=== PATIENT | female | born 1995 | race Two or more races ===

== ENCOUNTER 2016-07-19 16:21 | Emergency (ER) | payer OTHER ==
[~2016-07-19] VITALS: Ht 160 cm; Wt 54.8 kg
[2016-07-19 16:27] VITALS: BP 95/51; PULSE 90; RESP 16; TEMP 98.9; O2SAT 100
[2016-07-19 17:27] LABS: BLOOD, URINE NEG (NEG); GLUCOSE,URINE NEG (NEG); KETONE, URINE NEG (NEG); NITRITE,URINE NEG (NEG)
[2016-07-19 17:33] LABS: METHOD OF COLLECTION CLEAN CATCH; MUCUS URINE FEW /lpf (OCC); URINE COLOR YELLOW (YELLW/STRAW)
[2016-07-19 17:33] LABS: AUTOMATED NEUTROPHIL # 4.7 TH/MM3 (1.8-7.7); BASOPHIL # 0.2 TH/MM3 (0-0.2); BASOPHIL % 3.1 % (0.0-2.0); EOSINOPHIL # 0.2 TH/MM3 (0-0.4); EOSINOPHIL % 2.7 % (0.0-4.0); HEMATOCRIT 38.3 % (35.0-46.0); HEMO FLAGS DIFF FINAL; LYMPH % 22.8 % (9.0-44.0); LYMPHOCYTE # 1.6 TH/MM3 (1.0-4.8); MEAN CELL VOLUME 83.2 FL (80.0-100.0); MEAN CORPUSCULAR HEMOGLOBIN 28.3 PG (27.0-34.0); MONO % 5.8 % (0.0-8.0); NEUT % 65.6 % (16.0-70.0); PLATELET COUNT 259 TH/MM3 (150-450); RED BLOOD COUNT 4.61 MIL/MM3 (4.00-5.30); RED CELL DISTRIBUTION WIDTH 14.2 % (11.6-17.2); WHITE BLOOD COUNT 7.1 TH/MM3 (4.0-11.0)
[2016-07-19 17:34] LABS: COMMENT (UR) CULT NOT INDICATED; CULTURE IF INDICATED CULT NOT INDICATED; RBC, URINE 0-3 /hpf (0-3)
--- NOTE | 2016-07-19 17:35 | PD ---
HPI Chief Complaint: Abdominal Pain Time Seen by Provider: 17:05 Travel History International Travel<30 days: No Contact w/Intl Traveler<30days: No Traveled to known affect area: No History of Present Illness HPI Patient is a 21-year-old female who presents emergency department for evaluation of abdominal cramping, nausea, burning with urination, sore throat. Symptoms have been ongoing for approximately one week. Patient is 2 months with no OB follow-up. Patient is sexually active and not on any current control. She denies any fevers, chills, vomiting, shortness of breath, headache, chest pain. Patient has not had a menstrual cycle since of her daughter. PFSH Past Medical History Medical History: Denies Significant Hx Influenza Vaccination: No ?: LMP: 2 months post Past Surgical History Surgical History: No Previous Surgery Social History Alcohol Use: No Tobacco Use: No Substance Use: No Allergies-Medications (Allergen,Severity, Reaction): Coded Allergies: No Known Allergies (Unverified , 07/19/16) Reported Meds & Prescriptions Reported Meds & Active Scripts Active No Active Prescriptions or Reported Medications Review of Systems Except as stated in HPI: all other systems reviewed are Neg General / Constitutional: No: Fever, Chills HENT: Positive: Sore Throat, No: Headaches Cardiovascular: No: Chest Pain or Discomfort Respiratory: No: Cough, Shortness of Breath Gastrointestinal: Positive: Nausea, Abdominal Pain, No: Vomiting, Diarrhea Genitourinary: Positive: Dysuria, Pelvic Pain, No: Discharge, Vaginal Bleeding Musculoskeletal: No: Myalgias Neurologic: No: Dizziness Physical Exam Narrative GENERAL: Well-nourished, well-developed patient. SKIN: Warm and dry. HEAD: Normocephalic. EYES: No scleral icterus. No injection or drainage. NECK: Supple, trachea midline. No JVD or lymphadenopathy. CARDIOVASCULAR: Regular rate and rhythm without murmurs, gallops, or rubs. RESPIRATORY: Breath sounds equal bilaterally. No accessory muscle use. GASTROINTESTINAL: Abdomen soft, mildly tender to palpation in suprapubic region. Positive bowel sounds, no rebound, no guarding. MUSCULOSKELETAL: No cyanosis, or edema. BACK: Nontender without obvious deformity. No CVA tenderness. Data Data Last Documented VS Vital Signs Date Time Temp Pulse Resp B/P Pulse Ox O2 Delivery O2 Flow Rate FiO2 07/19/16 19:00 99.1 72 16 107/52 99 Room Air Orders Urinalysis - C+S If Indicated (07/19/16 17:14) Complete Blood Count With Diff (07/19/16 17:17) Beta Hcg (Quant/Titer) (07/19/16 17:17) Basic Metabolic Panel (Bmp) (07/19/16 17:17) Iv Access Insert/Monitor (07/19/16 17:17) Us Pelvis (Ques Pr/Ect)W Trans (07/19/16 ) Labs Laboratory Tests Test 07/19/16 07/19/16 17:15 17:30 Urine Collection Type CLEAN CATCH Urine Color YELLOW Urine Turbidity CLEAR Urine pH 6.0 Urine Specific Dell 1.028 Urine Protein NEG mg/dL Urine Glucose (UA) NEG mg/dL Urine Ketones NEG mg/dL Urine Occult Blood NEG Urine Nitrite NEG Urine Bilirubin NEG Urine Leukocyte Esterase TRACE Urine RBC 0-3 /hpf Urine WBC 6-8 /hpf Urine Squamous Epithelial 6-8 /hpf Cells Urine Mucus FEW /lpf Microscopic Urinalysis Comment CULT NOT INDICATED Urine Collection Time 17:15 White Blood Count 7.1 TH/MM3 Red Blood Count 4.61 MIL/MM3 Hemoglobin 13.0 GM/DL Hematocrit 38.3 % Mean Corpuscular Volume 83.2 FL Mean Corpuscular Hemoglobin 28.3 PG Mean Corpuscular Hemoglobin 34.0 % Concent Red Cell Distribution Width 14.2 % Platelet Count 259 TH/MM3 Mean Platelet Volume 7.8 FL Neutrophils (%) (Auto) 65.6 % Lymphocytes (%) (Auto) 22.8 % Monocytes (%) (Auto) 5.8 % Eosinophils (%) (Auto) 2.7 % Basophils (%) (Auto) 3.1 % Neutrophils # (Auto) 4.7 TH/MM3 Lymphocytes # (Auto) 1.6 TH/MM3 Monocytes # (Auto) 0.4 TH/MM3 Eosinophils # (Auto) 0.2 TH/MM3 Basophils # (Auto) 0.2 TH/MM3 CBC Comment DIFF FINAL Differential Comment Sodium Level 141 MEQ/L Potassium Level 3.8 MEQ/L Chloride Level 109 MEQ/L Carbon Dioxide Level 24.1 MEQ/L Anion Gap 8 MEQ/L Blood Urea Nitrogen 11 MG/DL Creatinine 0.63 MG/DL Estimat Glomerular Filtration 117 ML/MIN Rate Random Glucose 82 MG/DL Calcium Level 8.2 MG/DL Human Chorionic Gonadotropin, 118 MIU/ML Quant MDM Medical Decision Making Medical Screen Exam Complete: Yes Emergency Medical Condition: Yes Interpretation(s) Vital Signs Date Time Temp Pulse Resp B/P Pulse Ox O2 Delivery O2 Flow Rate FiO2 07/19/16 16:27 98.9 90 16 95/51 100 Differential Diagnosis Intrauterine versus ectopic versus threatened versus urine rechecked infection versus other Narrative Course Patient is a 21-year-old female who presents to the emergency department for evaluation of intermittent bilateral lower abdominal cramping, nausea. Patient is 2 months and has not had a menstrual cycle. She is not breast- feeding. Her vital signs are stable, she is afebrile well oxygenated on room air. [id number] urine was positive. CBC, chemistry, unremarkable. HCG level was elevated at 118. Urinalysis shows white blood cells, small with epithelial, trace leukocyte esterase. HCG level can remain elevated up to 2 months however patient has been sexually active and is not on control. It is likely that she has a very early intrauterine or possible ectopic . A pelvic and transvaginal ultrasound was performed, no intrauterine was seen, an ectopic could not be ruled out. There is an oval hypoechoic area seen in the right ovary this is non-specific. Additionally there is mild free fluid. Discussed with my attending physician. Patient was advised on the findings regarding ultrasound and her hCG level. Discussed with patient that she may have a very early intrauterine versus an ectopic versus elevation of her hCG level. Patient was given strict return precautions. She was advised to return to emergency Department regardless of pain in 2-3 days for reevaluation and reassessment of her hCG level. She was advised to return to emergency department immediately for any new or worsening symptoms. Discussed [facility] as an option for [facility] [employer] care. However patient was advised to return to the emergency department if she could not be seen there in the next 2-3 days. Patient verbalized understanding of the importance of close follow-up as well as prompt return for any new or worsening symptoms. Patient is stable for discharge. Diagnosis Primary Impression: Elevated serum human chorionic gonadotropin (hCG) level Additional Impression: Possible , not yet confirmed Referrals: [facility] Patient Instructions: Ectopic (DC), General Instructions Additional Instructions: Return to emergency department immediately for any new or worsening symptoms Return to emergency department for reevaluation in 2-3 days Follow-up with the [facility] or [facility] Med/Other Pt SpecificInfo: No Change to Meds Scripts No Active Prescriptions or Reported Meds Disposition: 01 DISCHARGE HOME Condition: Stable Vane Beaver Jul 19, 2016 17:35
[2016-07-19 17:41] LABS: POTASSIUM 3.8 MEQ/L (3.5-5.1)
[2016-07-19 17:44] LABS: BICARBONATE 24.1 MEQ/L (21.0-32.0)
[2016-07-19 19:00] VITALS: BP 107/52; PULSE 72; RESP 16; TEMP 99.1; O2SAT 99
--- NOTE | 2016-07-19 20:15 | RADHPO ---
EXAM DATE/TIME: 07/20/2016 00:20 [place] COMPARISON: No previous studies available for comparison. INDICATIONS : Pelvic pain. LAB(S): Beta-hC MEDICAL HISTORY : . 2 months . SURGICAL HISTORY : None. ENCOUNTER: Initial ACUITY: 1 day PAIN SCORE: 7/10 LOCATION: Bilateral pelvis MEASUREMENTS: UTERUS: 9.8 x 6.5 x 5.4 cm ENDOMETRIAL STRIPE: 16 mm RIGHT OVARY: 3.3 x 2.2 x 1.6 cm LEFT OVARY: 3.1 x 2.6 x 1.3 cm FINDINGS: UTERUS: The myometrium has homogeneous echotexture without mass. RIGHT OVARY: There is a 1.7 x 1.1 x 1.5 cm oval hypoechoic area seen associated with the right ovary. LEFT OVARY: Ovary contains no mass or significant cystic lesion. MISCELLANEOUS: There is mild free fluid. CONCLUSION: 1. No IUP is seen. An ectopic is not ruled out. 2. Oval hypoechoic area seen in the right ovary area, this is nonspecific. It can be followed. Sd Moreno MD on July 19, 2016 at 20:09 Board Certified Radiologist. This report was verified electronically.
[2016-07-19 20:48] VITALS: BP 97/46
[2016-12-03] MEDS ORDERED: PREN1CHW7 PO (15:10)
[2016-12-08] MEDS ORDERED: METR-1 PO (16:40)
[2016-12-08] MEDS ORDERED: TERC.4%V VAGINAL (16:40)
== END 2016-07-19 21:03 | disposition home or self-care (01) ==
LOC: PHED 16:21
DX: R78.89 Finding of other specified substances, not normally found in blood (principal); R93.8 Abnormal findings on diagnostic imaging of other specified body structures; R10.9 Unspecified abdominal pain; R11.0 Nausea; R30.0 Dysuria; R07.0 Pain in throat
CPT/HCPCS: 76700; 76817; 80048; 81001; 84702; 85025

== ENCOUNTER 2016-08-05 14:22 | Emergency (ER) | payer OTHER ==
[~2016-08-05] VITALS: Ht 160 cm; Wt 54.0 kg
[2016-08-05 14:29] VITALS: BP 98/58; PULSE 83; RESP 16; TEMP 99.4; O2SAT 100
[2016-12-03] MEDS ORDERED: PREN1CHW7 PO (15:10)
[2016-12-08] MEDS ORDERED: METR-1 PO (16:40)
[2016-12-08] MEDS ORDERED: TERC.4%V VAGINAL (16:40)
== END 2016-08-05 15:56 | disposition left against medical advice (07) ==
LOC: PHED 14:22
DX: O26.891 Other specified pregnancy related conditions, first trimester (principal); Z3A.01 Less than 8 weeks gestation of pregnancy
CPT/HCPCS: 99281

== ENCOUNTER 2017-02-19 08:20 | Emergency (ER) | payer MEDICAID, OTHER ==
[~2017-02-19] VITALS: Ht 160 cm; Wt 55.0 kg
[~2017-02-19 08:20] MED LIST: PREN1CHW7 PO
[2017-02-19 08:29] VITALS: BP 99/45; PULSE 101; RESP 16; TEMP 99; O2SAT 98
[2017-02-19] MEDS ORDERED: ZANT150T2 PO (09:08)
[2017-02-19 09:09] VITALS: BP 100/54; PULSE 96; RESP 16; TEMP 98.7; O2SAT 99
--- NOTE | 2017-02-19 09:09 | PD ---
HPI Chief Complaint: cough Time Seen by Provider: 08:54 Travel History International Travel<30 days: No Contact w/Intl Traveler<30days: No History of Present Illness HPI This is a 21-year-old female who presents to the emergency department 21 weeks with a cough that's been going on for 1 week, constant, moderate severity, worse in the evenings, with no associated fevers or chills. She has no rhinorrhea or sore throat. She has been bringing up some yellow sputum. It' s been keeping her up at night so she came to the emergency department. She has no history of asthma. She isn't smoke. She has a baby that 9 months old. FOR[facility]LY [facility] Social History Alcohol Use: No Tobacco Use: No Substance Use: No Allergies-Medications (Allergen,Severity, Reaction): Coded Allergies: No Known Allergies (Unverified , 01/04/17) Reported Meds & Prescriptions Reported Meds & Active Scripts Active Vitafol Gummies 3.33-0.333-34.8 mg ( Vit W/ Ferric Phospha) 1 Chw Chw 3 Tab PO DAILY Review of Systems Except as stated in HPI: all other systems reviewed are Neg Physical Exam Narrative GENERAL:Well appearing, no acute distress SKIN: Focused skin assessment warm and dry. HEAD: Atraumatic. Normocephalic. EYES: Pupils equal and round. No injection or drainage. ENT: Moist mucous membranes NECK: Trachea midline. CARDIOVASCULAR: Regular rate and rhythm. No murmur appreciated. RESPIRATORY: Clear to auscultation. Breath sounds equal bilaterally. GASTROINTESTINAL: Abdomen soft, non-tender, nondistended. Gravid uterus. MUSCULOSKELETAL: No obvious deformities. NEUROLOGICAL: Awake and alert. No obvious cranial nerve deficits. Moving all extremities. PSYCHIATRIC: Appropriate mood and affect; insight and judgment normal. Data Data Last Documented VS Vital Signs Date Time Temp Pulse Resp B/P (MAP) Pulse Ox O2 Delivery O2 Flow Rate FiO2 02/19/17 08:29 99.0 101 16 99/45 (63) 98 Room Air MDM Medical Decision Making Medical Screen Exam Complete: Yes Emergency Medical Condition: Yes Differential Diagnosis Bronchitis, pneumonia, GERD Narrative Course This is a 21-year-old female who is 21 weeks who presents to the emergency department with a productive cough for one week. She is very well- appearing and has a benign exam. I recommended a steamed humidifier. I suspect the patient's symptoms may be related to GERD as she mostly coughs in the evenings and I recommended a one week trial of ranitidine. Diagnosis Primary Impression: Cough Additional Instructions: If you develop severe chest pain, shortness of breath, sweating, lightheadedness , dizziness or difficulty breathing return to the emergency department immediately. Obtain a humidifier and place it in your room. Complete a one-week trial of Zantac and see if your symptoms improved. Med/Other Pt SpecificInfo: Prescription(s) given Scripts Ranitidine (Zantac) 150 Mg Tab 150 MG PO BID for Reduce Stomach Acid, #60 TAB 0 Refills Prov: Soco Du MD 02/19/17 Disposition: 01 DISCHARGE HOME Condition: Stable Soco Du MD Feb 19, 2017 09:09
[2017-03-03] MEDS ORDERED: TERC0.8C VAGINAL (13:29)
== END 2017-02-19 09:32 | disposition home or self-care (01) ==
LOC: PHED 08:20
DX: O26.892 Other specified pregnancy related conditions, second trimester (principal); R05 Cough; Z3A.21 21 weeks gestation of pregnancy
CPT/HCPCS: 99283

== ENCOUNTER 2017-05-09 16:20 | Emergency (ER) | payer MEDICAID ==
[~2017-05-09] VITALS: Ht 160 cm; Wt 59.4 kg
[~2017-05-09 16:20] MED LIST changes: +ZANT150T2 PO
[2017-05-09 16:45] VITALS: RESP 18
--- NOTE | 2017-05-09 17:22 | PD ---
HPI Chief Complaint Possible contractions Date Seen: May 09, 2017 Time Seen: 16:40 Travel History International Travel<30 Days: No Contact w/Intl Traveler<30Days: No Known Affected Area: No History of Present Illness HPI 22-year-old 4 para 2 SAB 1 living children 1 who is at 31-6/7 weeks gestation and comes today for concern about possible contractions. She denies any bleeding, loss of fluid, vaginal discharge. She denies any dysuria hematuria or frequency. Her 1-year-old daughter was born at term that she had a similar episode of early contractions without labor. History Past Medical History Medical History: Denies Significant Hx Obstetric History Obstetric History Her first resulted in a vaginal delivery and secondary to chromosomal abnormality. Her second resulted in term vaginal delivery of a now 1-year-old female. She had a spontaneous loss earlier this year. Past Surgical History Surgical History: No Previous Surgery Family History Family History: Negative Social History Alcohol Use: No Tobacco Use: No Substance Abuse: No Allergies-Medications (Allergen,Severity, Reaction): Coded Allergies: No Known Allergies (Unverified Allergy, Unknown, 04/28/17) Home Meds Active Scripts Vit W/ Ferric Phospha (Vitafol Gummies 3.33-0.333-34.8 mg) 1 Chw Chw, 3 TAB PO DAILY, #90 BOTTLE 11 Refills Prov:Maria R Mccoy 12/03/16 Discontinued Scripts Ranitidine (Zantac) 150 Mg Tab, 150 MG PO BID for Reduce Stomach Acid, #60 TAB 0 Refills Prov:Soco Du MD 02/19/17 Review of Systems Except as stated in HPI: all other systems reviewed are Neg Physical Exam Narrative GENERAL: Well-nourished, well-developed patient. SKIN: Warm and dry. HEAD: Normocephalic and atraumatic. EYES: No scleral icterus. No injection or drainage. ENT: No nasal drainage noted. Mucous membranes pink. Airway patent. NECK: Supple, trachea midline. No JVD. CARDIOVASCULAR: Regular rate and rhythm without murmurs, gallops, or rubs. RESPIRATORY: Breath sounds equal bilaterally. No accessory muscle use. BREASTS: Bilateral exam showed no masses , no retractions, no nipple discharge. ABDOMEN/GI: Abdomen soft, non-tender, bowel sounds present, no rebound, no guarding Gravid to [-] weeks size Fundal Height: [-30] GENITOURINARY: External Genitalia: intact and normal in appearance BUS glands: [-] Cervix: [-] Dilatation: [Closed-] Effacement: [-Long] Station: [High-] Presentation: [-] Membranes: [intact ] Uterine Contractions: [Every 3-5 mild-] FHT's: Category: [-1] Baseline: [-] Reactive: [-] Variability: [-] Decels: [-] EXTREMITIES: No cyanosis or edema. BACK: Nontender without obvious deformity. No CVA tenderness. NEUROLOGICAL: Awake and alert. Motor and sensory grossly within normal limits. Five out of 5 muscle strength in all muscle groups. Normal speech. MDM Medical Record Reviewed: Yes Narrative Course / MDM Assessment: 31 6/7 week intrauterine with contractions and a nonthreatening cervical examination Plan: fibronectin IV hydration Addendum: Following 1 L of IV hydration the contractions diminished. Cervix remained unchanged. fibronectin was negative. The patient was discharged home in stable condition. Aber precautions were reviewed with her. She will follow up in the clinic on Wednesday. Disposition: DISCHARGE HOME Condition: Good Pérez Rivera MD May 09, 2017 17:22
[2017-05-09 17:36] LABS: BLOOD, URINE NEG (NEG); GLUCOSE,URINE NEG (NEG); KETONE, URINE NEG (NEG); MUCUS URINE FEW /lpf (OCC); NITRITE,URINE NEG (NEG); PH, URINE 7.5 (5.0-8.5); URINE COLOR YELLOW (YELLW/STRAW)
[2017-05-09 17:37] LABS: COMMENT (UR) CULT NOT INDICATED; CULTURE IF INDICATED CULT NOT INDICATED
[2017-05-09] MEDS ORDERED: SODIUM CHLOR 0.9% 1000 ML INJ 1,000 ML IV SCH (18:00)
== END 2017-05-09 18:24 | disposition home or self-care (01) ==
LOC: HOBED 16:20
DX: O26.93 Pregnancy related conditions, unspecified, third trimester (principal); Z3A.31 31 weeks gestation of pregnancy
CPT/HCPCS: 59025; 81001; 82731

== ENCOUNTER 2017-06-16 21:37 | Emergency (ER) | payer MEDICAID ==
[~2017-06-16] VITALS: Ht 160 cm; Wt 60.3 kg
[~2017-06-16 21:37] MED LIST changes: -ZANT150T2 PO
--- NOTE | 2017-06-16 22:20 | PD ---
HPI Chief Complaint Contractions Date Seen: Jun 16, 2017 Time Seen: 22:17 Travel History International Travel<30 Days: No Contact w/Intl Traveler<30Days: No Known Affected Area: No History of Present Illness HPI 22-year-old G for P2 who is at 37 weeks and 4 days comes in complaining of contractions for the past several hours. Patient's had contractions in the past was treated with hydration here on the unit. Patient is been 3 cm for several weeks the last exam being 4 days ago in the office. She is group B strep negative and denies any antepartum complications with this . She has no medical issues. Weeks Gestation: 37 (37.4) Para: 2 : 4 History Past Medical History Medical History: Denies Significant Hx Obstetric History Obstetric History Vaginal delivery of a trisomy 9 with Spontaneous vaginal delivery 1 year ago, 6 lbs. 10 oz., induced at 38 weeks due to polyhydramnios per patient history Past Surgical History Surgical History: No Previous Surgery Family History Family History: Negative Social History Alcohol Use: No Tobacco Use: No Substance Abuse: No Allergies-Medications (Allergen,Severity, Reaction): Coded Allergies: No Known Allergies (Unverified Allergy, Unknown, 06/16/17) Home Meds Discontinued Scripts Vit W/ Ferric Phospha (Vitafol Gummies 3.33-0.333-34.8 mg) 1 Chw Chw, 3 TAB PO DAILY, #90 BOTTLE 11 Refills Prov:Maria R Mccoy 12/03/16 Review of Systems Except as stated in HPI: all other systems reviewed are Neg Physical Exam Narrative GENERAL: Well-nourished, well-developed patient. SKIN: Warm and dry. HEAD: Normocephalic and atraumatic. EYES: No scleral icterus. No injection or drainage. ENT: No nasal drainage noted. Mucous membranes pink. Airway patent. NECK: Supple, trachea midline. No JVD. CARDIOVASCULAR: Regular rate and rhythm without murmurs, gallops, or rubs. RESPIRATORY: Breath sounds equal bilaterally. No accessory muscle use. ABDOMEN/GI: Abdomen soft, non-tender, bowel sounds present, no rebound, no guarding Gravid to [36-] weeks size Fundal Height: [-] GENITOURINARY: External Genitalia: intact and normal in appearance BUS glands: [Normal-] Cervix: [Posterior-] Dilatation: [3-] Effacement: [Thick-] Station: [--3] Presentation: [-Vertex] Membranes: [intact] Uterine Contractions: [-Irritability] FHT's: Category: [-1] Baseline: [-140] Reactive: [Moderate-] Variability: [Moderate-] Decels: [-Absent] EXTREMITIES: No cyanosis or edema. BACK: Nontender without obvious deformity. No CVA tenderness. NEUROLOGICAL: Awake and alert. Motor and sensory grossly within normal limits. Five out of 5 muscle strength in all muscle groups. Normal speech. Data Data Vital Signs Reviewed: Yes MDM Medical Record Reviewed: Yes Plan 22 yo at 37-38 weeks gestation with no cervical change. Contractions has decreased considerably with hydration and rest. Discharge home with follow up as scheduled Diagnosis Diagnosis: Primary Impression: 37 weeks gestation of Additional Impression: False labor at or after 37 completed weeks of gestation Disposition: 01 DISCHARGE HOME Wilma Jj MD Jun 16, 2017 22:20
== END 2017-06-16 23:41 | disposition home or self-care (01) ==
LOC: HOBED 21:37
DX: O47.1 False labor at or after 37 completed weeks of gestation (principal); Z3A.37 37 weeks gestation of pregnancy
CPT/HCPCS: 59025

== ENCOUNTER 2017-06-24 14:54 | Emergency (ER) | payer MEDICAID ==
--- NOTE | 2017-06-24 15:40 | PD ---
HPI Chief Complaint Painful contractions Date Seen: Jun 24, 2017 Time Seen: 15:35 Travel History International Travel<30 Days: No Contact w/Intl Traveler<30Days: No History of Present Illness HPI Patient is a 22-year-old at 38/3 weeks who presents with painful contractions. Is a [facility]. Estimated due date 07/03/2017. States that she noticed that contractions occurring yesterday, and today they were feeling 5-7 minutes apart and very painful. States that she can walk. Denies vaginal bleeding, gush of fluid, endorses movement. Patient states that she has been hydrating well today. Was found to be 4 cm dilated on Wednesday, has been regularly following up for her appointments. Is GBS negative. Patient states that she has had no abnormalities this course. Weeks Gestation: 38 Para: 2 : 4 Miscarriage: 1 History Past Medical History Medical History: Denies Significant Hx Obstetric History Obstetric History Vaginal delivery of a trisomy 9 infant with Spontaneous vaginal delivery 1 year ago, 6 lbs. 10 oz., induced at 38 weeks due to polyhydramnios per patient history Miscarriage at 9 weeks - 07/2016 Past Surgical History Surgical History: No Previous Surgery Family History Family History: Negative Social History Alcohol Use: No Tobacco Use: No Substance Abuse: No Allergies-Medications (Allergen,Severity, Reaction): Coded Allergies: No Known Allergies (Unverified Allergy, Unknown, 06/16/17) Home Meds No Active Prescriptions or Reported Meds Review of Systems Except as stated in HPI: all other systems reviewed are Neg Physical Exam Narrative GENERAL: Well-nourished, well-developed patient. SKIN: Warm and dry. HEAD: Normocephalic and atraumatic. EYES: No scleral icterus. No injection or drainage. NECK: Supple, trachea midline. No JVD. CARDIOVASCULAR: Regular rate and rhythm without murmurs, gallops, or rubs. RESPIRATORY: Breath sounds equal bilaterally. No accessory muscle use. ABDOMEN/GI: Abdomen soft, non-tender, bowel sounds present, no rebound, no guarding GENITOURINARY: Cervix: Posterior Dilatation:4 Effacement: 50 Station: -2 Presentation: vertex Membranes: intact Uterine Contractions: irregular FHT's: Category: 1 Baseline: 130 Reactive: yes Variability: mod Decels: none EXTREMITIES: No cyanosis or edema. NEUROLOGICAL: Awake and alert. Motor and sensory grossly within normal limits. Normal speech. Data Data Vital Signs Reviewed: Yes Group B Strep: Negative MDM Medical Record Reviewed: Yes Plan Patient is a 22-year-old at 38/3 weeks presenting with painful contractions. Category 1 tracing, reassuring /-2, does not appear to be jamila; rather uterine irritability Ruled out active labor Contractions likely secondary to Kameron Maravilla Educated patient to return if gush of fluid noted, vaginal bleeding, frequent/ painful contractions. RELL Damian Diagnosis Diagnosis: Primary Impression: Valencia Maravilla' contraction Additional Impression: 38 weeks gestation of Disposition: DISCHARGE HOME Condition: Stable Scripts No Active Prescriptions or Reported Meds Shelby Heredia MD R1 Jun 24, 2017 15:40
== END 2017-06-24 16:27 | disposition home or self-care (01) ==
LOC: HOBED 14:54
DX: O47.1 False labor at or after 37 completed weeks of gestation (principal); Z3A.38 38 weeks gestation of pregnancy
CPT/HCPCS: 59025

== ENCOUNTER 2017-06-26 16:25 | Inpatient (IN) | payer MEDICAID ==
[~2017-06-26] VITALS: Ht 160 cm; Wt 64.0 kg
[2017-06-26] VITALS (55 sets, daily range): BP systolic 96–132; BP diastolic 42–93; PULSE 85–143; RESP 18–20; TEMP 98–98.4
[~2017-06-26 16:25] MED LIST changes: +DIPHTH/TETANUS/ACEL PERTUSSIS (BOOSTER) 0.5 ML VIAL/PFS IM ONE; +MEASLES, MUMPS, RUBELLA VACCINE 0.5 ML VIAL SQ ONE; -PREN1CHW7 PO
--- NOTE | 2017-06-26 17:16 | PD ---
HPI Chief Complaint 39 weeks uterine contractions 3 hours mucoid red vaginal discharge Date Seen: Jun 26, 2017 Time Seen: 17:15 Travel History International Travel<30 Days: No Contact w/Intl Traveler<30Days: No Known Affected Area: No History of Present Illness HPI Pt is a 22 yo at 39 weeks. EDC 07-03-2017 care with [facility] GBS negative. Pt states she has had strong contractions starting about 3 hours prior to presentation. She reports red mucoid discharge. She notes reduced movement No vaginal bleeding. No vaginal leaking. First immediately , diagnosed with Trisomy 9. Second went to term. Pt states she was checked in the office 3 days ago and was 4cm dilated. Weeks Gestation: 39 Para: 1 : 4 History Past Medical History Medical History: Denies Significant Hx Obstetric History Obstetric History First ended in , diagnosed with Trisomy 9. Second went to term, Pt had 1st trimester miscarriage in 07/2016 Past Surgical History Surgical History: No Previous Surgery Family History Family History: Negative Social History Alcohol Use: No Tobacco Use: No Substance Abuse: No Allergies-Medications (Allergen,Severity, Reaction): Coded Allergies: No Known Allergies (Unverified Allergy, Unknown, 06/16/17) Home Meds No Active Prescriptions or Reported Meds Review of Systems Except as stated in HPI: all other systems reviewed are Neg Physical Exam Narrative GENERAL: Well-nourished, well-developed patient. SKIN: Warm and dry. HEAD: Normocephalic and atraumatic. EYES: No scleral icterus. No injection or drainage. ENT: No nasal drainage noted. Mucous membranes pink. Airway patent. NECK: Supple, trachea midline. No JVD. CARDIOVASCULAR: Regular rate and rhythm without murmurs, gallops, or rubs. RESPIRATORY: Breath sounds equal bilaterally. No accessory muscle use. BREASTS: Bilateral exam showed no masses , no retractions, no nipple discharge. ABDOMEN/GI: Abdomen soft, non-tender, bowel sounds present, no rebound, no guarding Gravid to [39] weeks size Fundal Height: [39] GENITOURINARY: External Genitalia: intact and normal in appearance BUS glands: [wnl] Cervix: [soft] Dilatation: [4cm] Effacement: [70%] Station: [-1] Presentation: [vertex] Membranes: [intact] Uterine Contractions: [2 minutes] FHT's: Category: [-] Baseline: [140s] Reactive: [-] Variability: [moderate] Decels: [some variable decells] EXTREMITIES: No cyanosis or edema. BACK: Nontender without obvious deformity. No CVA tenderness. NEUROLOGICAL: Awake and alert. Motor and sensory grossly within normal limits. Five out of 5 muscle strength in all muscle groups. Normal speech. Data Data Vital Signs Reviewed: Yes Group B Strep: Negative MDM Medical Record Reviewed: Yes Interpretation(s) 22 yo at 39 weeks. Presents with regular contractions past 3 hours. status initially non reassuring with minimal variability as well as variable decells. We will admit to L&D. Scripts No Active Prescriptions or Reported Meds Pablo Medina MD Jun 26, 2017 17:16
[2017-06-26] MEDS ORDERED: LACTATED RINGER'S 1000 ML INJ 1,000 ML IV PRN (17:28)
[2017-06-26] MEDS ORDERED: SODIUM CHLORID 0.9% 500 ML INJ 500 ML IV PRN (17:30)
[2017-06-26] MEDS ORDERED: LIDOCAINE HCL 1% 50 ML VIAL I-DERMAL PRN (17:30)
[2017-06-26] MEDS ORDERED: MINERAL OIL 10 ML VIAL TOPICAL PRN (17:30)
[2017-06-26] MEDS ORDERED: OXYTOCIN 30 UNITS-500ML PREMIX 500 ML IV ONE (17:30)
[2017-06-26] MEDS ORDERED: CITRIC ACID-SODIUM CITRATE LIQ 30 ML UDC PO SCH (17:30)
[2017-06-26] MEDS ORDERED: OXYTOCIN 30 UNITS-500ML PREMIX 500 ML IV SCH ×2 (17:30→22:45)
[2017-06-26] MEDS ORDERED: LIDOCAINE HCL 1% 50 ML VIAL INFIL PRN (17:30)
--- NOTE | 2017-06-26 17:38 | HHI.HP ---
HPI Chief Complaint uterine contractions 39 weeks Date Seen: Jun 26, 2017 Time Seen: 17:25 Travel History International Travel<30 Days: No Contact w/Intl Traveler<30Days: No Known Affected Area: No History of Present Illness HPI Pt is a 22 yo at 39 weeks. EDC 07-03-2017 care with [facility] GBS negative. Pt states she has had strong contractions starting about 3 hours prior to presentation. She reports red mucoid discharge. She notes reduced movement No vaginal bleeding. No vaginal leaking. First immediately , diagnosed with Trisomy 9. Second went to term. Pt states she was checked in the office 3 days ago and was 4cm dilated. She remains at 4cm/705/-2 station on exam today by RN. However FHR initially showed minimal variability with variable decells and we will admit. Weeks Gestation: 39 Para: 1 : 4 History Past Medical History Medical History: Denies Significant Hx Obstetric History Obstetric History First neonatally after . trisomy 9 2nd term , complicated by Polyhydramnios, IOL Pt had first trimester miscarriage . Past Surgical History Surgical History: No Previous Surgery Family History Family History: Negative Social History Alcohol Use: No Tobacco Use: No Substance Abuse: No Allergies-Medications (Allergen,Severity, Reaction): Coded Allergies: No Known Allergies (Unverified Allergy, Unknown, 06/16/17) Home Meds No Active Prescriptions or Reported Meds Review of Systems Except as stated in HPI: all other systems reviewed are Neg Physical Exam Narrative GENERAL: Well-nourished, well-developed patient. SKIN: Warm and dry. HEAD: Normocephalic and atraumatic. EYES: No scleral icterus. No injection or drainage. ENT: No nasal drainage noted. Mucous membranes pink. Airway patent. NECK: Supple, trachea midline. No JVD. CARDIOVASCULAR: Regular rate and rhythm without murmurs, gallops, or rubs. RESPIRATORY: Breath sounds equal bilaterally. No accessory muscle use. BREASTS: Bilateral exam showed no masses , no retractions, no nipple discharge. ABDOMEN/GI: Abdomen soft, non-tender, bowel sounds present, no rebound, no guarding Gravid to [39] weeks size Fundal Height: [39] GENITOURINARY: External Genitalia: intact and normal in appearance BUS glands: [wnl] Cervix: [soft] Dilatation: [4cm] Effacement: [70%] Station: [-2] Presentation: [vertex] Membranes: [intact] Uterine Contractions: [every 2 minutes] FHT's: Category: [1 now] Baseline: [140s] Reactive: [-] Variability: [-] Decels: [-] EXTREMITIES: No cyanosis or edema. BACK: Nontender without obvious deformity. No CVA tenderness. NEUROLOGICAL: Awake and alert. Motor and sensory grossly within normal limits. Five out of 5 muscle strength in all muscle groups. Normal speech. Caprini VTE Risk Assessment Caprini VTE Risk Assessment: No/Low Risk (score <= 1) Caprini Risk Assessment Model Point Value = 1 Point Value = 2 Point Value = 3 Point Value = 5 Age 41-60 Minor surgery BMI > 25 kg/m2 Swollen legs Varicose veins or History of unexplained or recurrent spontaneous Oral contraceptives or hormone replacement Sepsis (< 1 month) Serious lung disease, including pneumonia (< 1 month) Abnormal pulmonary function Acute myocardial infarction Congestive heart failure (< 1 month) History of inflammatory bowel disease Medical patient at bed rest Age 61-74 Arthroscopic surgery Major open surgery (> 45 min) Laparoscopic surgery (> 45 min) Malignancy Confined to bed (> 72 hours) Immobilizing plaster cast Central venous access Age >= 75 History of VTE Family history of VTE Factor V Leiden Prothrombin [id number] Lupus anticoagulant Anticardiolipin antibodies Elevated serum homocysteine Heparin-induced thrombocytopenia Other congenital or acquired thrombophilia Stroke (< 1 month) Elective arthroplasty Hip, pelvis, or leg fracture Acute spinal cord injury (< 1 month) Prophylaxis Regimen Total Risk Factor Score Risk Level Prophylaxis Regimen 0-1 Low Early ambulation 2 Moderate Order ONE of the following: *Sequential Compression Device (SCD) *Heparin 5000 units SQ BID 3-4 Higher Order ONE of the following medications: *Heparin 5000 units SQ TID *Enoxaparin/Lovenox 40 mg SQ daily (WT < 150 kg, CrCl > 30 mL/min) *Enoxaparin/Lovenox 30 mg SQ daily (WT < 150 kg, CrCl > 10-29 mL/min) *Enoxaparin/Lovenox 30 mg SQ BID (WT < 150 kg, CrCl > 30 mL/min) AND/OR *Sequential Compression Device (SCD) 5 or more Highest Order ONE of the following medications: *Heparin 5000 units SQ TID (Preferred with Epidurals) *Enoxaparin/Lovenox 40 mg SQ daily (WT < 150 kg, CrCl > 30 mL/min) *Enoxaparin/Lovenox 30 mg SQ daily (WT < 150 kg, CrCl > 10-29 mL/min) *Enoxaparin/Lovenox 30 mg SQ BID (WT < 150 kg, CrCl > 30 mL/min) AND *Sequential Compression Device (SCD) Data Data Vital Signs Reviewed: Yes Orders Orders Ob (2e) Additional Admit Info (06/26/17 17:13) Admit To Inpatient (06/26/17 ) Code Status (06/26/17 17:28) Vital Signs (Adult) .Per protocol (06/26/17 17:28) Activity Oob Ad Shanice (06/26/17 17:28) Heart (06/26/17 17:28) Amnioinfusion (06/26/17 17:28) Urinary Catheter Management .ONCE (06/26/17 17:28) Diet Liquid (06/26/17 Dinner) Lactated Ringer's 1000 Ml Inj (Lr 1000 M (06/26/17 17:28) Lactated Ringer's 1000 Ml Inj (Lr 1000 M (06/26/17 17:28) Sodium Chlorid 0.9% 500 Ml Inj (Ns 500 M (06/26/17 17:30) Sodium Chlor 0.9% 1000 Ml Inj (Ns 1000 M (06/26/17 17:48) Lidocaine 1% Inj (50 Ml) (Xylocaine 1% I (06/26/17 17:30) Citric Acid-Sodium Citrate Liq (Bicitra (06/26/17 17:30) Fentanyl Inj (Fentanyl Inj) (06/26/17 17:30) Fentanyl Inj (Fentanyl Inj) (06/26/17 17:30) Complete Blood Count With Diff (06/26/17 17:28) Hold Clot (06/26/17 17:28) Abo/Rh Blood Type (06/26/17 17:28) Urinalysis - C+S If Indicated (06/26/17 17:28) Drug Screen, Random Urine (06/26/17 17:28) Resp Oxygen Non Rebreathe Mask (06/26/17 ) ^ Epidural / Intrathecal Infus (06/26/17 17:28) Oxytocin 30 Units-500ml Premix (Pitocin (06/26/17 17:30) Lidocaine 1% Inj (50 Ml) (Xylocaine 1% I (06/26/17 17:30) Light Mineral Oil (Muri-Lube Oil) (06/26/17 17:30) Inpatient Certification (06/26/17 ) Specimen To Be Collected PRN (06/26/17 17:28) Specimen To Be Collected PRN (06/26/17 17:28) ^ Non Stress Test (06/26/17 17:29) Response To Medication .Post New Med Administration, Reaction (06/26/17 17:29) ^ Discontinue Medication (06/26/17 17:29) Oxytocin 30 Units-500ml Premix (Pitocin (06/26/17 17:30) Group B Strep: Negative Assessment/Plan Assessment and Plan 22 yo at 39 weeks. Presents with regular contractions and cervical dilatation. Initial FHR non-reassuring, but improved with IVF Plan for L&D admission GBS negative. Pitocin per protocol, AROM when feasible. Pablo Medina MD Jun 26, 2017 17:38
[2017-06-26] MEDS ORDERED: SODIUM CHLOR 0.9% 1000 ML INJ 1,000 ML IV PRN (17:48)
[2017-06-26] MEDS: LACTATED RINGER'S 1000 ML INJ 1,000 ML IV SCH ×2 (18:11→20:40)
[2017-06-26 18:30] LABS: AUTOMATED NEUTROPHIL # 8.9 TH/MM3 (1.8-7.7); BASOPHIL % 0.1 % (0.0-2.0); EOSINOPHIL # 0.1 TH/MM3 (0-0.4); EOSINOPHIL % 0.7 % (0.0-4.0); HEMATOCRIT 30.3 % (35.0-46.0); LYMPH % 14.5 % (9.0-44.0); LYMPHOCYTE # 1.6 TH/MM3 (1.0-4.8); MEAN CELL VOLUME 75.7 FL (80.0-100.0); MEAN CORPUSCULAR HEMOGLOBIN 24.9 PG (27.0-34.0); MEAN CORPUSCULAR HGB CONC 32.9 % (32.0-36.0); MEAN PLATELET VOLUME 7.4 FL (7.0-11.0); MONO % 5.9 % (0.0-8.0); MONOCYTE # 0.7 TH/MM3 (0-0.9); NEUT % 78.8 % (16.0-70.0); PLATELET COUNT 289 TH/MM3 (150-450); RED CELL DISTRIBUTION WIDTH 15.6 % (11.6-17.2); WHITE BLOOD COUNT 11.3 TH/MM3 (4.0-11.0)
[2017-06-26 18:39] LABS: BACTERIA, URINE RARE /hpf; BILIRUBIN, URINE NEG (NEG); BLOOD, URINE NEG (NEG); GLUCOSE,URINE NEG (NEG); KETONE, URINE 10 mg/dL (NEG); MUCUS URINE MOD /lpf (OCC); NITRITE,URINE NEG (NEG); SQUAMOUS EPITHELIAL CELL URINE 4 /hpf (0-5); URINE COLOR YELLOW (YELLW/STRAW); URINE LEUKOCYTE ESTERASE LARGE (NEG)
[2017-06-26] MEDS ORDERED: fentaNYL 2MCG-BUPIV 0.125% INJ 100 ML ONE (19:21)
[2017-06-26] MEDS ORDERED: ePHEDrine/NS 25 MG/5 ML SYRINGE ONE (20:20)
[2017-06-26] MEDS ORDERED: DO NOT ADMINISTER ANTICOAGULANTS PRN (21:15)
[2017-06-26] MEDS ORDERED: ePHEDrine/NS 25 MG/5 ML SYRINGE IV PUSH PRN (21:15)
[2017-06-26] MEDS ORDERED: fentaNYL 2MCG-BUPIV 0.125% 100 ML EPIDURAL SCH (21:15)
[2017-06-26] MEDS ORDERED: NO SYSTEM NARCOTICS PRN (21:15)
[2017-06-26] MEDS ORDERED: ACETAMINOPHEN 325 MG TAB PO PRN (22:45)
[2017-06-26] MEDS ORDERED: ZOLPIDEM TARTRATE 5 MG TAB PO PRN (22:45)
[2017-06-26] MEDS ORDERED: BENZOCAINE 20% TOPICAL SPRAY 60 ML CAN TOPICAL PRN (22:45)
[2017-06-26] MEDS ORDERED: DOCUSATE SODIUM 50 MG/SENNA 8.6 MG TAB PO PRN (22:45)
[2017-06-26] MEDS ORDERED: ALUMINUM/MAGNESIUM/SIMETH 30 ML CUP PO PRN (22:45)
[2017-06-26] MEDS ORDERED: IBUPROFEN 800 MG TAB PO PRN (22:45)
[2017-06-26] MEDS ORDERED: SODIUM CHLORIDE 0.9% FLUSH 10 ML FLUSH IV FLUSH PRN (22:45)
[2017-06-26] MEDS ORDERED: ONDANSETRON ODT 4 MG TAB PO PRN (22:45)
--- NOTE | 2017-06-26 22:45 | PD.OB.DELI ---
Weeks gestation: 39 Gest age assessed date: Jun 26, 2017 Gest age assessed time: 15:00 Pt started active labor?: Yes Active labor start date: Jun 26, 2017 Artificial rupture of membrane: No Anesthesia: Epidural Episiotomy: None Vaginal Delivery: Normal, Spontaneous Presentation: Occiput anterior Nuchal Cord: None Delayed cord clamping (45 sec): No : Female Delivery date: Jun 26, 2017 Delivery time: 21:32 One Minute : 6 Five Minute : 9 Weight: 2725 Placenta: Spontaneous delivery Laceration: No lacerations Estimated blood loss: 150cc Pablo Medina MD Jun 26, 2017 22:45
[2017-06-27] MEDS: WITCH HAZEL 50%/GLYCERIN 12.5% 40 PAD JAR TOPICAL PRN ×2 (03:24→20:12)
[2017-06-27 07:40] VITALS: BP 102/61; PULSE 77; RESP 18; TEMP 98.9
--- NOTE | 2017-06-27 08:26 | HHI.OB ---
Subjective Post Day: 1 Remarks Patient seen and examined this morning. AFVSS overnight. day #1. Patient states she has been having centrally-located abdominal pain that was not relieved by motrin, no radiation of pain. She states she was not able to get much sleep due to the pain. Denies fevers or chills. Decreased lochia. Denies dysuria. No breast tenderness. She is feeding the baby via breast and formula. Appetite good. No nausea or vomiting. Ambulating well. Denies calf pain , shortness of breath, or cough. Objective Vitals/I&O Vital Signs Date Time Temp Pulse Resp B/P (MAP) Pulse Ox O2 Delivery O2 Flow Rate FiO2 06/27/17 07:40 98.9 77 18 102/61 (75) 06/26/17 23:45 98.4 104 18 114/57 (76) 06/26/17 22:51 18 06/26/17 22:45 93 100/55 (70) 06/26/17 22:45 18 06/26/17 22:33 98.4 06/26/17 22:30 18 06/26/17 22:30 89 115/61 (79) 06/26/17 22:15 102 06/26/17 22:15 100 110/60 (77) 06/26/17 22:14 18 06/26/17 22:00 98/60 (73) 06/26/17 21:50 98.1 06/26/17 21:50 18 06/26/17 21:45 103 97/54 (68) 06/26/17 21:31 143 06/26/17 21:31 106/69 (81) 06/26/17 21:25 109 06/26/17 21:15 96/78 (84) 06/26/17 21:10 113 06/26/17 21:05 123 06/26/17 21:00 94 18 103/71 (82) 06/26/17 20:55 113 06/26/17 20:45 109 06/26/17 20:45 103/60 (74) 06/26/17 20:40 112 06/26/17 20:35 111 06/26/17 20:30 115/63 (80) 06/26/17 20:25 109 06/26/17 20:20 100 06/26/17 20:15 105/48 (67) 06/26/17 20:10 104 06/26/17 20:00 110/42 (64) 06/26/17 20:00 98.0 06/26/17 20:00 20 06/26/17 19:55 93 06/26/17 19:55 93 06/26/17 19:54 94 103/55 (71) 06/26/17 19:51 92 109/49 (69) 06/26/17 19:50 94 06/26/17 19:48 87 06/26/17 19:48 110/45 (66) 06/26/17 19:45 97 06/26/17 19:45 99 122/58 (79) 06/26/17 19:42 98 125/48 (73) 06/26/17 19:40 104 06/26/17 19:40 99 06/26/17 19:39 100 125/74 (91) 06/26/17 19:37 98 101/77 (85) 06/26/17 19:35 109 06/26/17 19:34 101/68 (79) 06/26/17 19:34 99 06/26/17 19:30 114 116/65 (82) 06/26/17 19:30 87 06/26/17 19:27 119/93 (102) 06/26/17 19:27 85 06/26/17 19:25 104/71 (82) 06/26/17 19:25 115 06/26/17 19:25 93 06/26/17 19:21 103 06/26/17 19:21 18 06/26/17 19:21 132/75 (94) 06/26/17 19:20 93 06/26/17 19:20 94 06/26/17 19:19 117/65 (82) 06/26/17 19:19 98 06/26/17 19:00 98.0 06/26/17 19:00 114/56 (75) 06/26/17 19:00 20 06/26/17 18:55 98 06/26/17 18:30 20 06/26/17 18:25 115 06/26/17 18:20 115 06/26/17 18:15 112 114/69 (84) 06/26/17 18:15 109 06/26/17 18:00 20 06/26/17 17:57 108 110/68 (82) 06/26/17 17:55 114 06/26/17 17:50 115 06/26/17 17:45 125 Objective Remarks GENERAL: Well-nourished, well-developed patient. CARDIOVASCULAR: Regular rate and rhythm without murmurs, gallops, or rubs. RESPIRATORY: Breath sounds equal bilaterally. No accessory muscle use. ABDOMEN/GI: Abdomen soft, moderate tenderness to palpation of abdomen just inferior to umbilicus, no distension. No guarding. No rebound tenderness. Fundus: Firm, non-tender at umbilicus. GENITOURINARY: Light to moderate bleeding. EXTREMITIES: No cyanosis or edema, non-tender, without signs of DVT. Medications and IVs Current Medications Medications (Trade) Dose Ordered Sig/Nell Route Start Time Stop Time Status Last Admin Miscellaneous Information No systemic narcotics to be given except... UNSCH PRN .XX 06/26/17 21:15 06/27/17 21:14 Miscellaneous Information DO NOT ADMINISTER ANY ANTICOAGUL... UNSCH PRN .XX 06/26/17 21:15 06/27/17 21:14 (NS Flush) 2 ml BID IV FLUSH 06/27/17 09:00 (NS Flush) 2 ml UNSCH PRN IV FLUSH 06/26/17 22:45 (Tylenol) 650 mg Q4H PRN PO 06/26/17 22:45 (Motrin) 800 mg Q8H PRN PO 06/26/17 22:45 06/27/17 04:18 (Americaine 20% Top Spr) 1 spray Q4H PRN TOPICAL 06/26/17 22:45 06/27/17 03:24 (Tucks Pads) 1 applic QID PRN TOPICAL 06/26/17 22:45 06/27/17 03:24 (Yaona-Colace) 2 tab Q12H PRN PO 06/26/17 22:45 (Ambien) 5 mg HS PRN PO 06/26/17 22:45 (Mag-Al Plus Susp Liq) 15 ml Q8H PRN PO 06/26/17 22:45 (Zofran Odt) 4 mg Q6H PRN PO 12/30/17 22:45 (Percocet 5-325 Mg) 1 tab ONCE ONCE PO 06/27/17 08:15 06/27/17 08:16 UNV Assessment/Plan Assessment and Plan 22 year old PPD#1. 1. Care - AFVSS - Encouraged OOB, as tolerated - Motrin prn pain - Will give percocet 5/325 1 tab x1 for pain - Continue to monitor with abdominal exam - Uterine fundus firm - Advised pelvic rest x 6 weeks - Breast and formula feeding - Contraception: discussed with patient this AM. Patient is still considering her options - Will f/u with OB provider in 6 weeks [facility] hospitalist Jalil Beltran MD R2 Jun 27, 2017 08:25
[2017-06-27] MEDS ORDERED: oxyCODONE/ACETAMINOPHEN 5 MG/325 MG TAB PO ONE (08:30)
[2017-06-27] MEDS ORDERED: SODIUM CHLORIDE 0.9% FLUSH 10 ML FLUSH IV FLUSH SCH (09:00)
[2017-06-27 20:00] VITALS: BP 99/59; PULSE 76; RESP 18; TEMP 98.2
[2017-06-28] MEDS ORDERED: medroxyPROGESTERone ACETATE SUSP 150 MG/ML SYRINGE IM ONE ×2 (07:30→08:00)
--- NOTE | 2017-06-28 07:49 | HHI.OB ---
Subjective Remarks 22 year old female s/p at 39wks gestation, PPD2. AFVSS. Patient reports she is feeling well. Bleeding is decreasing and pain is well- controlled. She is breast feeding and bonding well with baby. Ambulating without difficulties. She is tolerating a diet without nausea or vomiting. She has not had a bowel movement. She has passed gas. Denies chest pain, dysuria, shortness of breath, or calf pain. Objective Vitals/I&O Vital Signs Date Time Temp Pulse Resp B/P (MAP) Pulse Ox O2 Delivery O2 Flow Rate FiO2 06/27/17 20:00 98.2 18 06/27/17 20:00 76 99/59 (72) Objective Remarks GENERAL: Well-nourished, well-developed patient. CARDIOVASCULAR: Regular rate and rhythm without murmurs, gallops, or rubs. RESPIRATORY: Breath sounds equal bilaterally. No accessory muscle use. ABDOMEN/GI: Abdomen soft, moderate tenderness to palpation of abdomen just inferior to umbilicus, no distension. No guarding. No rebound tenderness. Fundus: Firm, non-tender at umbilicus. GENITOURINARY: Light to moderate bleeding. EXTREMITIES: No cyanosis or edema, non-tender, without signs of DVT. Medications and IVs Current Medications Medications (Trade) Dose Ordered Sig/Nell Route Start Time Stop Time Status Last Admin (NS Flush) 2 ml BID IV FLUSH 06/27/17 09:00 (NS Flush) 2 ml UNSCH PRN IV FLUSH 06/26/17 22:45 (Tylenol) 650 mg Q4H PRN PO 06/26/17 22:45 06/28/17 04:33 (Motrin) 800 mg Q8H PRN PO 06/26/17 22:45 06/27/17 04:18 (Americaine 20% Top Spr) 1 spray Q4H PRN TOPICAL 06/26/17 22:45 06/27/17 03:24 (Tucks Pads) 1 applic QID PRN TOPICAL 06/26/17 22:45 06/27/17 20:12 (Yoana-Colace) 2 tab Q12H PRN PO 06/26/17 22:45 (Ambien) 5 mg HS PRN PO 06/26/17 22:45 (Mag-Al Plus Susp Liq) 15 ml Q8H PRN PO 06/26/17 22:45 (Zofran Odt) 4 mg Q6H PRN PO 06/26/17 22:45 Assessment/Plan Assessment and Plan 22 year old PPD#2. 1. Care - AFVSS - Encouraged OOB, as tolerated - Motrin prn pain - Continue to monitor with abdominal exam - Uterine fundus firm - Advised pelvic rest x 6 weeks - Breast and formula feeding - Contraception: Depo - Will f/u with OB provider in 6 weeks [facility] hospitalist Stacy Abebe MD R1 Jun 28, 2017 07:49
--- NOTE | 2017-06-28 07:52 | HHI.DCPOC ---
Discharge Care Plan Diagnosis: (1) Normal vaginal delivery Report Symptoms to Your Doctor -Temperature above 100.5 degrees -Redness, of incision or excessive or foul smelling drainage -Unusual pain or calf pain -Increased vaginal bleeding -Painful or difficulty urinating -Feelings of extreme sadness or anxiety after 2 weeks Goals to Promote Your Health * To prevent worsening of your condition and complications * To maintain your health at the optimal level Directions to Meet Your Goals Take your medications as prescribed Follow your dietary instruction Follow activity as directed Ensure plenty of rest for recovery Drink fluids for hydration Keep your appointments as scheduled Take your immunizations and boosters as scheduled If your symptoms worsen call your PCP, if no PCP go to Urgent Care Center or Emergency Room Smoking is Dangerous to Your Health. Avoid second hand smoke Call the 24-hour crisis hotline for domestic abuse at Stacy Abebe MD R1 Jun 28, 2017 07:52
[2017-06-28] MEDS ORDERED: IBUP1TAB7 PO (07:53)
[2017-06-28] MEDS ORDERED: PERI PO (07:54)
[2017-06-28 08:00] VITALS: BP 111/55; PULSE 65; RESP 18; TEMP 98.9
== END 2017-06-28 13:18 | disposition home or self-care (01) | DRG 775 ==
LOC: HOBED 16:25 → H2EB 17:16 → H1EA 23:45
PROVIDERS: ADMIT Obstetrics & Gynecology; ATTEND Obstetrics & Gynecology
PROC: 10E0XZZ Delivery of Products of Conception, External Approach (ICD-10-PCS; principal; 2017-06-26)
PROC: 3E0R3BZ Introduction of Anesthetic Agent into Spinal Canal, Percutaneous Approach (ICD-10-PCS; 2017-06-26)
PROC: 00HU33Z Insertion of Infusion Device into Spinal Canal, Percutaneous Approach (ICD-10-PCS; 2017-06-26)
DX: O76 Abnormality in fetal heart rate and rhythm complicating labor and delivery (principal); Z37.0 Single live birth; Z3A.39 39 weeks gestation of pregnancy
CPT/HCPCS: 59025; 80307; 81001; 85025; 85461; 86850; 86900; 86901; 87086; 90384; J1050; J2590; J2790; J7120